=== PATIENT | female | born 1950 | race Hispanic/Latino ===

== ENCOUNTER 2017-11-08 14:31 | Emergency (ER) | payer BC, OTHER ==
[2017-11-08 14:53] VITALS: BP 145/79; PULSE 75; RESP 16; TEMP 98.4; O2SAT 100
--- NOTE | 2017-11-08 15:28 | ED PDOC ---
Lower Extremity Pain/Injury Time Seen by Provider: 11/08/17 14:52 Chief Complaint (Nursing): Lower Extremity Problem/Injury Chief Complaint (Provider): Lower Extremity Problem/Injury History Per: Patient History/Exam Limitations: no limitations Current Symptoms Are (Timing): Still Present Additional Complaint(s): Kennedi is a 67 year old female who presents to the emergency department with right knee pain for 4 weeks after falling out of bed. Patient admits to taking Naprosyn today (prescribed by doctor) however it is not helping. Denies any medical problems. PMD: Dr. Briones in [place], [place] Past Medical History Reviewed: Historical Data, Nursing Documentation, Vital Signs Vital Signs: Last Vital Signs Temp 98.4 F 11/08/17 14:50 Pulse 75 11/08/17 14:50 Resp 16 11/08/17 14:50 BP 145/79 11/08/17 14:50 Pulse Ox 100 11/08/17 14:50 - Medical History PMH: No Chronic Diseases - Surgical History Surgical History: No Surg Hx - Family History Family History: States: No Known Family Hx - Living Arrangements Living Arrangements: With Family - Social History Current smoker - smoking cessation education provided: No - Home Medications Home Medications: Ambulatory Orders Medication Instructions Recorded traMADol [Ultram] 50 mg PO Q6H PRN #20 tab 11/08/17 - Allergies Allergies/Adverse Reactions: Allergies Allergy/AdvReac Type Severity Reaction Status Date / Time No Known Allergies Allergy Verified 11/08/17 14:51 Review of Systems ROS Statement: Except As Marked, All Systems Reviewed And Found Negative Musculoskeletal: Positive for: Other (Right Knee Pain) Physical Exam - Reviewed Nursing Documentation Reviewed: Yes Vital Signs Reviewed: Yes - Physical Exam Appears: Positive for: Well, Non-toxic, No Acute Distress Head Exam: Positive for: ATRAUMATIC, NORMAL INSPECTION, NORMOCEPHALIC Skin: Positive for: Normal Color (No ecchymosis, no erythema ), Warm Eye Exam: Positive for: Normal appearance ENT: Positive for: Normal ENT Inspection Neck: Positive for: Normal Respiratory: Negative for: Accessory Muscle Use, Respiratory Distress Pulses-Dorsalis Pedis (R): 2+ Pulses-Post. Tibialis (R): 2+ Back: Positive for: Normal Inspection Extremity: Positive for: Normal ROM, Tenderness (LCL, MCL). Negative for: Deformity, Swelling Neurologic/Psych: Positive for: Alert, Oriented - ECG O2 Sat by Pulse Oximetry: 100 (RA) Pulse Ox Interpretation: Normal Medical Decision Making Medical Decision Making: Time: 14:58 Plan: - Right Knee X-Ray - Ultram 50 mg PO Time: 15:47 Right Knee X-Ray IMPRESSION: Small ossific density at the level of the lateral patella on sunrise view may reflect degenerative change/remote injury. Tiny fracture fragment cannot be entirely excluded however considered less likely. Correlate with physical exam. No tenderness of the lateral patella. Pt reports feeling better after tramadol in ER. Vahe wrap applied. Scribe Attestation: Documented by Mandeep Michaud, acting as a scribe for Raquel Mccurdy PA-C Provider Scribe Attestation: All medical record entries made by the Scribe were at my direction and personally dictated by me. I have reviewed the chart and agree that the record accurately reflects my personal performance of the history, physical exam, medical decision making, and the department course for this patient. I have also personally directed, reviewed, and agree with the discharge instructions and disposition. Disposition - Clinical Impression Clinical Impression: Knee pain - Patient ED Disposition Is Patient to be Admitted: No Counseled Patient/Family Regarding: Diagnosis, Need For Followup - Disposition Referrals: Mariusz Galdamez MD [Medical Doctor] - Disposition: Routine/Home Disposition Time: 16:06 Condition: GOOD Prescriptions: traMADol [Ultram] 50 mg PO Q6H PRN #20 tab PRN Reason: Pain Instructions: Knee Pain (ED) Forms: [employer] (German)
--- NOTE | 2017-11-08 15:48 | RAD ---
PROCEDURE: Right Knee Radiographs. HISTORY: COMPARISON: None available. FINDINGS: BONES: Small ossific density at the level of the lateral patella on sunrise view may reflect degenerative change/remote injury. Tiny fracture fragment cannot be entirely excluded however considered less likely. Correlate with physical exam. The remainder the visualized osseous structures appear intact without acute displaced fracture identified. JOINTS: No dislocation. JOINT EFFUSION: No significant joint effusion. OTHER FINDINGS: None. IMPRESSION: Small ossific density at the level of the lateral patella on sunrise view may reflect degenerative change/remote injury. Tiny fracture fragment cannot be entirely excluded however considered less likely. Correlate with physical exam.
== END 2017-11-08 16:10 | disposition home or self-care (01) ==
LOC: H.ER 14:31
DX: M25.561 Pain in right knee (principal)